=== PATIENT | female | born 1995 | race Caucasian/White ===

== ENCOUNTER 2022-08-28 10:19 | Outpatient (REF) | payer BC, SELFPAY ==
[2022-08-28 11:23] LABS: MANUAL DIFF FLAG NO
[2022-08-28 11:34] LABS: Appearance Urine Clear; Color Urine Yellow; Glucose Urine UA Negative (Negative); Leukocyte Esterase Urine Trace (Negative); Nitrite Urine Negative (Negative); PH 5.5 (5.0-9.0); UMIC TRIGGER UACC YES; Urine Blood Negative (Negative); Urine Ketones Negative (Negative); Urine Protein Negative (Neg-Trace)
[2022-08-28 11:39] LABS: Basophils Absolute Auto 0.1 X10*3/uL (0.0-0.2); Basophils Percent Auto 1.1 % (0-2); Eosinophils Absolute Auto 0.1 X10*3/uL (0.0-0.4); Eosinophils Percent Auto 1.8 % (0-4); Hematocrit 38.3 % (37.0-47.0); Hemoglobin 12.6 g/dl (12.0-16.0); Imm Gran Abs Auto 0.01 X10*3/uL (0.00-0.03); Imm Gran Pct Auto 0.2 % (0.0-0.4); Lymphocytes Absolute Auto 2.8 X10*3/uL (1.2-4.9); Lymphocytes Percent Auto 49.6 % (20-40); Mean Corpuscular HGB Conc 32.9 g/dl (31.0-35.0); Mean Corpuscular Hemoglobin 28.9 pg (27.0-33.0); Mean Corpuscular Volume 87.8 fL (80.0-98.0); Mean Platelet Volume 11.1 fL (9.4-12.3); Monocytes Absolute Auto 0.4 X10*3/uL (0.1-1.2); Monocytes Percent Auto 7.6 % (2-11); Neutrophils Absolute Auto 2.3 x10*3/uL (2.0-8.3); Neutrophils Percent Auto 39.7 % (45-73); Platelet Count 258 X10*3/uL (160-400); Red Blood Count 4.36 X10*6/uL (4.20-5.50); Red Cell Distribution Width 12.3 % (11.0-16.0); White Blood Count 5.7 X10*3/uL (4.8-10.8)
[2022-08-28 12:03] LABS: Bacteria Urine None Seen (None Seen); Hyaline Casts Urine 0-2 /LPF (0-2); WBC Urine 0-5 /HPF (0-5)
[2022-08-28 12:15] LABS: Alanine Aminotransferase 13 U/L (0-31); Albumin Level 4.3 g/dL (3.5-5.0); Alkaline Phosphatase 33 U/L (39-117); Anion Gap 12 (12-20); Aspartate Amino Transferase 17 U/L (5-31); Bilirubin Total 0.6 mg/dL (0.0-1.0); Blood Urea Nitrogen 9 mg/dL (9-16); Calcium 9.1 mg/dL (8.4-10.2); Carbon Dioxide 23 mmol/L (22-29); Chloride 110 mmol/L (96-108); Cholesterol 184 mg/dL; Estimated Glomerular Filt Rate > 60; Glucose Fasting 93 mg/dL (60-99); HDL Cholesterol 55 mg/dL; LDL Cholesterol Calculated 121 mg/dl; Potassium 4.3 mmol/L (3.3-5.1); Sodium 141 mmol/L (135-145); TSH reflex Free T4 1.21 uIU/mL (0.32-4.0); Total Protein 6.6 g/dL (6.5-8.0); Triglycerides 44 mg/dL
== END 2022-08-28 10:20 | disposition home or self-care (01) ==
LOC: HO.HMGCLDS 10:19
PROVIDERS: PCP Nurse Practitioner Family; Visit Provider Nurse Practitioner Family
DX: Z00.00 Encounter for general adult medical examination without abnormal findings (principal)
CPT/HCPCS: 36415; 80053; 80061; 81001; 84443; 85025

== ENCOUNTER 2022-12-20 12:12 | Outpatient (AMB) | payer BC, SELFPAY ==
--- NOTE | 2022-12-20 13:08 | AM.OFFWIN_ITS ---
Intake Vital Signs 12/20/22 13:21 Height 5 ft Weight 63.163 kg BMI 27.2 BP 92/60 Blood Pressure Location Rt brachial Position Sitting Pulse 74 Pulse Source Pulse Oximeter Temp 98.2 F Temp Source Temporal Artery Scan Pulse Oximetry (%) 98 Oxygen Delivery Method Room Air Intake Visit Reasons: EST/throat pain/[phone] Intake Note: Pt is here c/o sore throat for the last few days. Pt states her co worker did test positive for strep. Patient Tobacco Use Status: Never used Tobacco Allergies No Known Allergies Allergy (Verified 12/20/22 13:08) Do you need a note to return to daycare/school/sports/work: Yes HPI HPI Comments History of Present Illness Details 27-year-old female presents with several days of sore throat with white spots in the back of her pharynx. Patient states that it is difficult for her to swallow and that she has had some subjective fevers and chills, and has a co- worker that is positive for strep yesterday. Patient is able to eat and drink without difficulty, able to manage secretions, denies weakness, rashes, chest pain or pressure, palpitations, shortness of breath, and malaise. PFSH Surgical History H/O: Social History Housing: House Patient Tobacco Use Status: Never used Tobacco e-Cigarette/Vaping Use: Never Used service: No Current occupational status: employed Current occupational exposures/hazards: No Review of Systems Const Details: Constitutional: No Fever, No Chills ENT/Mouth: No Ear Pain, No Hoarseness, positive sore throat Eyes: No Eye Pain, No Swelling, No Redness, No Foreign Body Cardiovascular: No Chest Pain, No SOB Respiratory: No Cough, No Dyspnea Gastrointestinal: No Nausea, No Vomiting, No Diarrhea, No abdominal Pain Genitourinary: No Dysuria, No Hematuria Musculoskeletal: No joint pain, No Myalgias, No Joint Swelling Skin: No Skin lacerations, No rash Neuro: No Weakness, No Dizziness, No Headache All systems reviewed & are unremarkable except as noted in HPI and below Physical Exam Vital Signs: Last Vital Signs Temp 98.2 F 12/20/22 13:21 Pulse 74 12/20/22 13:21 BP 92/60 12/20/22 13:21 Pulse Ox 98 12/20/22 13:21 Oxygen Delivery Method Room Air 12/20/22 13:21 BMI result Body Mass Index 27.2 Appearance: Alert. Oriented X3. No acute distress. Eyes: Pupils equal, round and reactive to light. EOMI. ENT: Pharynx erythematous with tonsillar swelling and exudate. Anterior and posterior cervical lymphadenopathy noted. Centor scale 3. no mastoid tenderness noted. Neck: Normal inspection. Neck supple. No cervical lymphadenopathy. No nuchal rigidity. No vertebral tenderness. CVS: Normal heart rate and rhythm. Pulses normal. Respiratory: No respiratory distress. Breath sounds normal. Abdomen: Soft and nontender. Skin: Skin warm and dry. Normal skin color. Normal skin turgor. Extremities: Gait well-balanced well coordinated. Neuro: No motor deficit. No sensory deficit. Cranial nerves 2-12 intact Results AMB Rapid Strep AMB Rapid Strep Negative Last Edit by Jessy Nunez CMA on 12/20/22 13:56 Assessment & Plan Assessment & Plan (1) Pharyngitis: Code(s): J02.9 - Acute pharyngitis, unspecified Plan 27-year-old female presents with several days of sore throat with pharyngeal erythema and tonsillar exudates. She has had sick contacts that were tested positive for strep pharyngitis. Patient concerned because she has an infant at home. Patient is able to manage secretions, feels tired and achy but does not report any measured fevers. Physical exam is consistent with pharyngitis with pharyngeal erythema, bilateral tonsillar exudates and swelling, anterior and posterior cervical lymphadenopathy, Centor scale 3. No mastoid tenderness. No nuchal rigidity. Gait is well balanced well coordinated. Patient is afebrile, appears nontoxic. Vital signs stable within normal limits. No indication of peritonsillar abscess or epiglottitis. No tracheal stridor. Plan of care is to treat for suspected strep pharyngitis with Augmentin. Supportive measures discussed. Patient verbalized understanding of and agrees to plan of care discharge home. Verbalized understanding of signs and symptoms indicating need for emergent intervention. Medications: New amoxicillin-pot clavulanate 875-125 mg 1 tab PO Q12H 7 days 14 tabs 0RF Patient Instructions: You were evaluated for a sore throat. Your physical exam is highly suspicious for strep pharyngitis. We are treating with antibiotics. Take Augmentin 875 mg every 12 hours for the next 7 days. Throw your tooth brush away at day 5 and at the completion of the course of antibiotics. Use honey, sea salt water gargles, and lozenges to help reduce pain. Alternate Tylenol 650 mg every 6 hours and Motrin 600 mg every 6 hours as needed for pain and fever management. Consider taking these medications 3 hours apart so you have pain and fever management every 3 hours. Write down what time you take these medications to prevent accidental overdose. Motrin is the same medication as Advil and ibuprofen. Tylenol is the same medication as acetaminophen. Thank you for choosing this urgent care for evaluation. Please follow-up with primary care physician as needed. Return to the emergency department for any new, concerning, or worsening symptoms. Coding Level of Care Code Est Pt Level 3 (33460) Diagnoses Pharyngitis J02.9
[2022-12-20 13:21] VITALS: BP 92/60; PULSE 74; TEMP 36.8; O2SAT 98; BMI 27.2
== END 2022-12-20 13:56 | disposition home or self-care (01) ==
PROVIDERS: PCP Nurse Practitioner Family; Visit Provider Nurse Practitioner Family
DX: J02.9 Acute pharyngitis, unspecified (principal)
CPT/HCPCS: 87880; 99213

== ENCOUNTER 2023-05-06 11:32 | Outpatient (AMB) | payer BC, SELFPAY ==
--- NOTE | 2023-05-06 11:35 | MHC.PC.OV ---
Vital Signs 05/06/23 11:39 Height 5 ft Weight 136 lb BMI 26.6 BP 110/68 Blood Pressure Location Lt brachial Position Sitting Pulse 60 Pulse Source Pulse Oximeter Pulse Oximetry (%) 100 Oxygen Delivery Method Room Air Intake Visit Reasons: Annual PE Intake Note: Patient here for physical exam. last pap: 2020 at [place]. Allergies No Known Allergies Allergy (Verified 05/06/23 12:16) Medication List - Last Reconciled 05/06/23 by BEVERLEY BrandEDMUNDO [id number] 27 mg iron-800 mcg-260 mg ( Multi-DHA (with vitamin K)) 1 cap PO DAILY Tobacco use date assessed: 05/06/23 Dental Screening Dental Screen Date: 05/06/23 Did you have a dental visit in the last 12 months?: Yes Did you have a dental problem in the last 6 months where you did not have access to dental care?: No Was dental information given to patient?: Patient has dentist HPI Annual PE HPI Details Pt is here for a PE. Will order labs. Has a latex caster. HPI Comments History of Present Illness Details pt is here for a PE. Offers no questions or concerns. 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 [facility] Surgical History H/O: Social History (Reviewed 05/06/23 @ 11:55 by Roverto De La Torre [facility]) Housing: House Patient Tobacco Use Status: Never used Tobacco e-Cigarette/Vaping Use: Never Used service: No Current occupational status: employed Current occupational exposures/hazards: No Cognitive needs: No Hearing needs: No Vision needs: Yes Questionnaire PHQ-9 Over the last 2 weeks, how often have you been bothered by any of the following problems? 1. Little interest or pleasure in doing things: not at all 2. Feeling down, depressed, or hopeless: not at all 3. Trouble falling or staying asleep, or sleeping too much: not at all 4. Feeling tired or having little energy: not at all 5. Poor appetite or overeating: not at all 6. Feeling bad about yourself - or that you are a failure or have let yourself or your family down: not at all 7. Trouble concentrating on things, such as reading the newspaper or watching television: not at all 8. Moving or speaking so slowly that other people could have noticed. Or the opposite - being so fidgety or restless that you have been moving around a lot more than usual: not at all 9. Thoughts that you would be better off or of hurting yourself in some way: not at all Total score: 0 Depression Screening Interpretation: Negative Depression Screening Done: Yes 39531 - PHQ-9 Billing: Yes Source: Developed by Drs. Abraham Hastings, Megha Flores, Trevin Canada and colleagues, with an educational alberto from [employer]. Thrive Questionnaire Date Thrive assessed: 05/06/23 I am a: Patient What is your living situation today?: I have a steady place to live Within the past 12 months, did the food you bought not last and you didn't have the money to get more?: Never true Within the past 12 months, did you worry whether your food would run out before you got money to buy more?: Never true Do you have trouble paying for medicines?: No Do you have trouble getting transportation to medical appointments?: No Do you have trouble paying your heating and electricity bill?: No Do you have trouble taking care of your child, family member or friend?: No Do you have trouble with day-to-day activities such as bathing, preparing meals, shopping, managing finances, etc.?: No Are you currently unemployed and looking for a job?: No Are you interested in more education?: No AUDIT C Alcohol Use Questionnaire (AUDIT-C) 1. How often do you have a drink containing alcohol?: Never 3. How often do you have six or more drinks on one occasion?: Never Total Score: 0 Score Reviewed/Action Taken: No RUBY-7 AMB Questionnaire RUBY-7 Date RUBY - 7 assessed: 05/06/23 Feeling nervous, anxious, or on edge: 0 = Not at all Not being able to stop or control worryin = Not at all Worrying too much about different things: 0 = Not at all Trouble relaxin = Not at all Being so restless that it is hard to sit still: 0 = Not at all Becoming easily annoyed or irritable: 0 = Not at all Feeling afraid as if something awful might happen: 0 = Not at all Total RUBY-7 score (0-4 normal; 5-9 mild; 10-14 moderate; 15-21 severe): 0 Source: Developed by Drs. Abraham Hastings, Megha Flores, Trevin Canada and colleagues, with an educational alberto from [employer]. RUBY-7 Assessment Billing RUBY-7 Assessment Tool: RUBY-7 Assessment 39602 Review of Systems Const Denies chills and Denies fever(s) Eyes Denies blurry vision ENT Denies vertigo, Denies dizziness and Denies sore throat Card Denies chest pain at rest, Denies chest pain with activity, Denies diaphoresis, Denies dyspnea and Denies dyspnea on exertion Resp Denies cough, Denies dyspnea, Denies dyspnea on exertion and Denies wheezing GI Denies abdominal pain, Denies melena, Denies hematochezia, Denies constipation, Denies diarrhea and Denies loose stools Denies hematuria Musc Denies numbness and Denies tingling Skin/Breast Denies lesions Neuro Denies vertigo, Denies dizziness, Denies numbness and Denies tingling Psych Denies anxiety, Denies depression, Denies homicidal ideation, Denies suicidal ideation and Denies other (substance abuse) Aller/Immun Denies wheezing Physical exam (Primary Care) Vital Signs: Last Vital Signs Pulse 60 05/06/23 11:39 BP 110/68 05/06/23 11:39 Pulse Ox 100 05/06/23 11:39 Oxygen Delivery Method Room Air 05/06/23 11:39 BMI result Body Mass Index 26.6 Tobacco/Smoking Status: Tobacco use Status Tobacco use date assessed 05/06/23 05/06/23 11:41 Patient Tobacco Use Status Never used Tobacco 05/06/23 11:41 e-Cigarette/Vaping Use Never Used 05/06/23 11:41 PHQ-9: PHQ-9 Score PHQ-9: Total score 0 05/06/23 12:02 Depression Screening Interpretation: Negative Thrive Assessment: Date of Thrive Assessment Date Thrive assessed 05/06/23 05/06/23 12:02 Const General: cooperative Nutritional Appearance: well nourished Orientation/consciousness: patient oriented x3 HENMT Head: Yes normal to inspection, Yes normocephalic and Yes atraumatic Ears: TM's normal bilaterally Eyes General: appearance normal, both eyes and all related structures Alignment and Position: alignment normal and position normal Neck Neck: Yes normal visual inspection and Yes no lymphadenopathy Thyroid: Thyroid normal Resp Effort & Inspection: normal respiratory effort Auscultation: clear to auscultation bilaterally Cardio Rate: regular rate Rhythm: regular rhythm Heart sounds: S1 normal heart sound present, S2 normal heart sound present and no murmurs GI Palpation (GI): Soft to palpation and nontender Auscultation: normal bowel sounds Skin Rashes: no rashes Neuro General: patient oriented x3, moves all extremities, no focal motor deficits and deep tendon reflexes 2+ bilaterally Romberg Test: Negative Psych Appearance: grossly normal Mental Status: mental status grossly normal Speech and movement: Normal speech and movement present Affect: normal affect Attitude: cooperative Thought process: Normal thought process present Thought content: Normal thought content present Insight: Good insight present (Psych) Judgement: Good judgement present (Psych) Assessment and Plan Assessment & Plan (1) Physical exam: Code(s): Z. - Encounter for general adult medical examination without abnormal findings Plan The patient agreed to the use of a medical esthetician for this encounter. Scribed for BURKE Delgado by Randi Arriaga medical esthetician, on 05/06/2023 at 11:55 EST. Orders: Orders Complete Blood Count Auto Diff Today Z00.00 - Encounter for general adult medical examination without abnormal findings TSH reflex Free T4 Today Z00.00 - Encounter for general adult medical examination without abnormal findings UA CC w/rflx Micro + Cult Today Z00.00 - Encounter for general adult medical examination without abnormal findings Comprehensive [place]. Panel Fast Today Z00.00 - Encounter for general adult medical examination without abnormal findings Lipid Panel Today Z00.00 - Encounter for general adult medical examination without abnormal findings Coding Level of Care Code Est Pt Prev Care 18-39y(55242) Diagnoses Physical exam Z00. Additional Codes RUBY-7 Assessment Billing - RUBY-7 Assessment Tool: RUBY-7 Assessment 16523 ([id number])
[2023-05-06 11:39] VITALS: BP 110/68; PULSE 60; O2SAT 100; BMI 26.6
== END 2023-05-06 12:00 | disposition home or self-care (01) ==
PROVIDERS: Visit Provider Nurse Practitioner Family
DX: Z00.00 Encounter for general adult medical examination without abnormal findings (principal)
CPT/HCPCS: 99395

== ENCOUNTER 2023-05-08 11:17 | Outpatient (REF) | payer BC, SELFPAY ==
[2023-05-08 13:35] LABS: MANUAL DIFF FLAG NO
[2023-05-08 13:40] LABS: Appearance Urine Clear; Color Urine Yellow; Glucose Urine UA Negative (Negative); Leukocyte Esterase Urine Negative (Negative); Nitrite Urine Negative (Negative); Urine Blood Negative (Negative); Urine Ketones Negative (Negative); Urine Protein Negative (Neg-Trace)
[2023-05-08 13:49] LABS: Basophils Percent Auto 0.7 % (0-2); Eosinophils Absolute Auto 0.1 X10*3/uL (0.0-0.4); Hematocrit 36.3 % (37.0-47.0); Hemoglobin 11.6 g/dl (12.0-16.0); Imm Gran Abs Auto 0.02 X10*3/uL (0.00-0.03); Imm Gran Pct Auto 0.4 % (0.0-0.4); Lymphocytes Absolute Auto 1.9 X10*3/uL (1.2-4.9); Lymphocytes Percent Auto 34.7 % (20-40); Mean Corpuscular Hemoglobin 28.4 pg (27.0-33.0); Mean Platelet Volume 11.2 fL (9.4-12.3); Monocytes Absolute Auto 0.4 X10*3/uL (0.1-1.2); Monocytes Percent Auto 6.8 % (2-11); Neutrophils Percent Auto 55.4 % (45-73); Platelet Count 243 X10*3/uL (160-400); Red Blood Count 4.08 X10*6/uL (4.20-5.50); White Blood Count 5.5 X10*3/uL (4.8-10.8)
[2023-05-08 14:14] LABS: Alanine Aminotransferase 23 U/L (0-31); Albumin Level 3.8 g/dL (3.5-5.0); Alkaline Phosphatase 31 U/L (39-117); Anion Gap 11 (12-20); Aspartate Amino Transferase 25 U/L (5-31); Bilirubin Total 0.3 mg/dL (0.0-1.0); Blood Urea Nitrogen 10 mg/dL (9-16); Calcium 8.8 mg/dL (8.4-10.2); Carbon Dioxide 26 mmol/L (22-29); Chloride 108 mmol/L (96-108); Cholesterol 174 mg/dL (<200); Estimated Glomerular Filt Rate > 60; Glucose Fasting 96 mg/dL (60-99); HDL Cholesterol 65 mg/dL (>40); LDL Cholesterol Calculated 100 mg/dL (<100); Potassium 4.1 mmol/L (3.3-5.1); Sodium 141 mmol/L (135-145); Total Protein 6.3 g/dL (6.5-8.0); Triglycerides 48 mg/dL (<150)
[2023-05-08 14:20] LABS: TSH reflex Free T4 1.86 uIU/mL (0.32-4.0)
== END 2023-05-08 11:18 | disposition home or self-care (01) ==
LOC: HO.HMGCLDS 11:17
PROVIDERS: PCP Nurse Practitioner Family; Visit Provider Nurse Practitioner Family
DX: Z00.00 Encounter for general adult medical examination without abnormal findings (principal); D64.9 Anemia, unspecified
CPT/HCPCS: 36415; 80053; 80061; 81003; 84443; 85025

== ENCOUNTER 2024-05-18 10:52 | Outpatient (AMB) | payer BC, SELFPAY ==
--- NOTE | 2024-05-18 11:02 | MHC.PC.OV ---
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 She is currently and has been experiencing periodic constipation. The constipation has been managed with the use of MiraLAX, as it provides relief. She denies any chest pain or shortness of breath. There is no mention of previous complications or significant issues in her thus far. Her mood and mental health are stable, as she denies any feelings of depression or anxiety. She has had ongoing coordination with her data collection associate and expresses no further questions or concerns at this time. Health Maintenance Social History Review of Systems - Gastrointestinal: Denies chest pain, shortness of breath; reports periodic constipation. - Psychological: Denies depression and anxiety; in good spirits. Physical Exam General: Cooperative, healthy appearing, comfortable, no acute distress and well developed Orientation: Patient oriented x3 Limitations: No limitations Head: Normal to inspection Ears: Hearing grossly normal bilaterally Nose: Normal external nose present Face and sinus: Normal facial exam Eyes: Appearance normal, both eyes and all related structures Neck: Normal visual inspection and Yes full ROM Respiratory: Normal respiratory effort and able to speak in complete sentences. Clear to auscultation bilaterally Cardiovascular: Regular rate and rhythm. Normal S1 and S2 GI: Normal to inspection. Soft to palpation and nontender, obviously Skin: No rashes or lesions noted Neuro: Patient oriented x3 Extremities: Normal to inspection Results Plan - Continue MiraLAX for constipation as it is providing relief. - Regular follow-ups with her data collection associate to monitor the progress of her . - Address any new symptoms or concerns promptly. Patient was informed and verbally consented to the use of an ambient scribe for clinic note documentation during this visit. Discussion Notes I informed the patient that her physical examination during is normal, and her lungs are clear with normal heart sounds. She is currently not exhibiting any concerning symptoms that require immediate intervention. We briefly discussed her management of constipation with MiraLAX, which she reports is effective. I reassured her regarding her stable mood and encouraged ongoing communication with her data collection associate. Patient Instructions - Continue using MiraLAX as needed for constipation. - Attend regular check-ups with your data collection associate. - Monitor for any new or worsening symptoms, and seek care if necessary. [facility] Surgical History H/O: Social History Housing: House Patient Tobacco Use Status: Never used Tobacco e-Cigarette/Vaping Use: Never Used service: No Current occupational status: employed Current occupational exposures/hazards: No Cognitive needs: No Hearing needs: No Vision needs: Yes Questionnaire PHQ-9 Over the last 2 weeks, how often have you been bothered by any of the following problems? 1. Little interest or pleasure in doing things: not at all 2. Feeling down, depressed, or hopeless: not at all 3. Trouble falling or staying asleep, or sleeping too much: not at all 4. Feeling tired or having little energy: not at all 5. Poor appetite or overeating: not at all 6. Feeling bad about yourself - or that you are a failure or have let yourself or your family down: not at all 7. Trouble concentrating on things, such as reading the newspaper or watching television: not at all 8. Moving or speaking so slowly that other people could have noticed. Or the opposite - being so fidgety or restless that you have been moving around a lot more than usual: not at all 9. Thoughts that you would be better off or of hurting yourself in some way: not at all Total score: 0 Depression Screening Interpretation: Negative Depression Screening Done: Yes 92072 - PHQ-9 Billing: Yes Source: Developed by Drs. Abraham Hastings, Megha Flores, Trevin Canada and colleagues, with an educational alberto from [employer]. Thrive Questionnaire Date Thrive assessed: 05/18/24 I am a: Patient What is your living situation today?: I have a steady place to live Within the past 12 months, did the food you bought not last and you didn't have the money to get more?: Never true Within the past 12 months, did you worry whether your food would run out before you got money to buy more?: Never true Do you have trouble paying for medicines?: No Do you have trouble getting transportation to medical appointments?: No Do you have trouble paying your heating and electricity bill?: No Do you have trouble taking care of your child, family member or friend?: No Do you have trouble with day-to-day activities such as bathing, preparing meals, shopping, managing finances, etc.?: No Are you currently unemployed and looking for a job?: No Are you interested in more education?: No Please select the resources that you would like help with: None Currently or been in a relationship where the following occur: No concerns reported THRIVE Score: 0 AUDIT C Alcohol Use Questionnaire (AUDIT-C) 1. How often do you have a drink containing alcohol?: Never 3. How often do you have six or more drinks on one occasion?: Never Total Score: 0 Score Reviewed/Action Taken: Yes RUBY-7 AMB Questionnaire RUBY-7 Date RUBY - 7 assessed: 05/18/24 Feeling nervous, anxious, or on edge: 0 = Not at all Not being able to stop or control worryin = Not at all Worrying too much about different things: 0 = Not at all Trouble relaxin = Not at all Being so restless that it is hard to sit still: 0 = Not at all Becoming easily annoyed or irritable: 0 = Not at all Feeling afraid as if something awful might happen: 0 = Not at all Total RUBY-7 score (0-4 normal; 5-9 mild; 10-14 moderate; 15-21 severe): 0 Source: Developed by Drs. Abraham Hastings, Trevin Correa and colleagues, with an educational alberto from [employer]. RUBY-7 Assessment Billing RUBY-7 Assessment Tool: RUBY-7 Assessment 21359 Physical exam (Primary Care) Vital Signs: Last Vital Signs Pulse 70 05/18/24 11:03 BP 112/72 05/18/24 11:03 Pulse Ox 100 05/18/24 11:03 Oxygen Delivery Method Room Air 05/18/24 11:03 BMI result Body Mass Index 30.5 Tobacco/Smoking Status: Tobacco use Status Tobacco use date assessed 05/18/24 05/18/24 11:04 Patient Tobacco Use Status Never used Tobacco 05/18/24 11:04 e-Cigarette/Vaping Use Never Used 05/18/24 11:04 PHQ-9: PHQ-9 Score PHQ-9: Total score 0 05/18/24 11:11 Depression Screening Interpretation: Negative Thrive Assessment: Date of Thrive Assessment Date Thrive assessed 05/18/24 05/18/24 11:04 Currently or been in a relationship where the following occur: No concerns reported Coding Level of Care Code Est Pt Prev Care 18-39y(00869) Diagnoses Physical exam Z00.00 Additional Codes RUBY-7 Assessment Billing - RUBY-7 Assessment Tool: RUBY-7 Assessment 51120 ([id number]) PHQ-9 - 17779 - PHQ-9 Billing: Yes ([id number]) Assessment & Plan Assessment & Plan (1) Physical exam: Code(s): Z00.00 - Encounter for general adult medical examination without abnormal findings Category: Medical Plan . Orders: Orders Comprehensive [place]. Panel Fast Today Z00.00 - Encounter for general adult medical examination without abnormal findings TSH reflex Free T4 Today Z00.00 - Encounter for general adult medical examination without abnormal findings Lipid Panel Today Z00.00 - Encounter for general adult medical examination without abnormal findings Complete Blood Count Auto Diff Today Z00.00 - Encounter for general adult medical examination without abnormal findings UA CC w/rflx Micro + Cult Today Z00.00 - Encounter for general adult medical examination without abnormal findings
[2024-05-18 11:03] VITALS: BP 112/72; PULSE 70; O2SAT 100; BMI 30.5
== END 2024-05-18 11:39 | disposition home or self-care (01) ==
PROVIDERS: PCP Nurse Practitioner Family; Visit Provider Nurse Practitioner Family
DX: Z00.00 Encounter for general adult medical examination without abnormal findings (principal)

== ENCOUNTER → 2024-05-18 10:52 | Outpatient (BNVA) | payer BC, SELFPAY | PROVIDERS: PCP Nurse Practitioner Family; Visit Provider Nurse Practitioner Family | DX: Z00.00 Encounter for general adult medical examination without abnormal findings (principal); O99.612 Diseases of the digestive system complicating pregnancy, second trimester; K59.00 Constipation, unspecified; Z3A.24 24 weeks gestation of pregnancy | CPT/HCPCS: 96127 ==